=== PATIENT | female | born 1980 | race Caucasian/White ===

== ENCOUNTER 2017-02-10 22:14 | Emergency (ER) | payer OTHER ==
[~2017-02-10] VITALS: Ht 170.2 cm; Wt 86.4 kg
[2017-02-10 23:59] VITALS: BP 160/94
[2017-02-11] MEDS ORDERED: NORCO 325 MG-51 TAB PO (00:32)
== END 2017-02-10 23:59 | disposition home or self-care (01) ==
LOC: ED 22:14
DX: S97.81XA Crushing injury of right foot, initial encounter (principal); S93.601A Unspecified sprain of right foot, initial encounter; S70.01XA Contusion of right hip, initial encounter; S20.211A Contusion of right front wall of thorax, initial encounter; V03.00XA Pedestrian on foot injured in collision with car, pick-up truck or van in nontraffic accident, initial encounter; Y92.008 Other place in unspecified non-institutional (private) residence as the place of occurrence of the external cause
CPT/HCPCS: J1885